=== PATIENT | female | born 1990 | race Two or more races ===

== ENCOUNTER 2023-09-07 17:49 | Emergency (ER) | payer OTHER ==
[~2023-09-07] VITALS: Ht 152.4 cm; Wt 67.5 kg
[2023-09-07 18:02] VITALS: TEMP 97.5; O2SAT 100
[2023-09-07 19:09] LABS: Urine Bacteria FEW /hpf (None Seen); Urine Blood Negative /uL (Negative); Urine Clarity Clear (Clear); Urine Color Colorless (Yellow); Urine Protein, UAD Negative (Negative); Urine Specific Gravity 1.014 (1.001-1.035); Urine Urobilinogen Normal (Negative); Urine WBC 1 /hpf (0 - 5); Urine pH 5.5 (5.0-8.0)
[2023-09-07 19:22] LABS: Albumin 4.6 g/dL (3.2-4.8); Alkaline Phosphatase 53 U/L (46-116); Anion Gap 5 (5-15); Aspartate Aminotransferase 10 U/L (13-40); BUN/Creatinine Ratio 11.7 (10.0-20.0); Bilirubin, Total 0.5 mg/dL (0.2-1.0); Blood Urea Nitrogen 11 mg/dL (9-23); Calcium 9.6 mg/dL (8.7-10.4); Carbon Dioxide 27 mmol/L (20-30); Chloride 104 mmol/L (98-107); Glucose 101 mg/dL (74-106); Potassium 3.9 mmol/L (3.5-5.1); Sodium 136 mmol/L (136-145); Total Protein 7.7 g/dL (5.7-8.2)
[2023-09-07 20:17] LABS: Alanine Aminotransferase < 9 U/L (7-40)
[2023-09-07 20:34] LABS: Basophils # (auto) 0 10 ^3/uL (0-0.2); Basophils % (auto) 0.6 % (0.0-2.0); Eosinophils # (auto) 0.1 10 ^3/uL (0-0.8); Eosinophils % (auto) 1.9 % (0.0-7.0); Hematocrit 37.8 % (36.0-46.0); Hemoglobin 12.8 g/dL (12.2-16.2); Lymphocytes # (auto) 2.3 10 ^3/uL (0.4-5.4); Lymphocytes % (auto) 31.2 % (10.0-50.0); Mean Corpuscular Hemoglobin 29.9 pg (28.0-32.0); Mean Corpuscular Hgb Conc. 33.8 g/dL (32.0-36.0); Mean Corpuscular Volume 88.7 fL (80.0-100.0); Monocytes # (auto) 0.6 10 ^3/uL (0-1.3); Monocytes % (auto) 8.3 % (0.0-12.0); Neutrophils # (auto) 4.2 10 ^3/uL (1.6-8.6); Nucleated Red Blood Cells % 0.1 %; Red Blood Cells 4.26 10^6/uL (4.0-5.20); Red Cell Distribution Width 14.6 % (11.8-14.3); White Blood Cell 7.3 10^3/uL (4.4-10.8)
[2023-09-07 21:33] VITALS: BP 134/82; PULSE 82; RESP 16
== END 2023-09-07 22:26 | disposition home or self-care (01) ==
LOC: ER 17:49
DX: O20.0 Threatened abortion (principal); R10.2 Pelvic and perineal pain; Z3A.01 Less than 8 weeks gestation of pregnancy
CPT/HCPCS: 36415; 76801; 76817; 80053; 81001; 84702; 85025

== ENCOUNTER 2023-10-15 08:15 | Emergency (ER) | payer MEDICAID, OTHER ==
[~2023-10-15] VITALS: Ht 152.4 cm; Wt 68.1 kg
[2023-10-15 08:40] LABS: Urine Bacteria FEW /hpf (None Seen); Urine Blood Negative /uL (Negative); Urine Clarity Clear (Clear); Urine Color Yellow (Yellow); Urine Hyaline Cast FEW /lpf (0 - 2); Urine Mucus FEW (None Seen); Urine Protein, UAD Negative (Negative); Urine Specific Gravity 1.015 (1.001-1.035); Urine Sperm PRESENT /hpf (None Seen); Urine WBC 5 /hpf (0 - 5); Urine pH 5.5 (5.0-8.0)
[2023-10-15] MEDS ORDERED: NITR-87 PO (10:25)
[2023-10-15 10:32] VITALS: BP 128/84; PULSE 85; RESP 17; TEMP 98.4; O2SAT 99
== END 2023-10-15 10:34 | disposition home or self-care (01) ==
LOC: ER 08:15
DX: O20.0 Threatened abortion (principal); O23.41 Unspecified infection of urinary tract in pregnancy, first trimester; N39.0 Urinary tract infection, site not specified; Z79.899 Other long term (current) drug therapy; Z3A.09 9 weeks gestation of pregnancy
CPT/HCPCS: 36415; 76801; 81001; 84702

== ENCOUNTER 2024-01-15 13:44 | Emergency (ER) | payer MEDICAID ==
[~2024-01-15] VITALS: Ht 152.4 cm; Wt 70.6 kg
[~2024-01-15 13:44] MED LIST: NITR-87 PO; OMEP-335 PO
[2024-01-15 14:00] VITALS: BP 113/79; PULSE 97; RESP 16; O2SAT 98
[2024-01-15 15:13] LABS: Blood Alcohol < 3.0 mg/dL (<10)
[2024-01-15 15:14] LABS: Creatine Kinase IFCC 53 U/L (34-145)
[2024-01-15] MEDS ORDERED: SODIUM CHLORIDE 0.9% 500 ML IV ONE (15:30)
[2024-01-15 15:41] LABS: Magnesium 1.7 mg/dL (1.6-2.6)
[2024-01-15 15:55] LABS: Urine Bacteria FEW /hpf (None Seen); Urine Blood Negative /uL (Negative); Urine Clarity Clear (Clear); Urine Color Yellow (Yellow); Urine Mucus FEW (None Seen); Urine Protein, UAD Negative (Negative); Urine Specific Gravity 1.017 (1.001-1.035); Urine Urobilinogen 4 mg/dL (Negative); Urine WBC 2 /hpf (0 - 5)
[2024-01-15 16:12] LABS: Amphetamine Screen, Urine Neg (NEGATIVE); Barbiturate Scree,Urine Neg (NEGATIVE); Benzodiazephine Screen, Urine Neg (NEGATIVE); Cocaine Screen, Urine Neg (NEGATIVE); Opiate Scree,Urine Neg (NEGATIVE)
[2024-01-15 16:13] LABS: Cannabinoid Screen, Urine Neg (NEGATIVE); Phencyclidine Screen, Urine Neg (NEGATIVE)
[2024-01-15] MEDS ORDERED: cefTRIAXone 1GM/50ML D5W 50 ML IV ONE (18:00)
[2024-01-15 18:44] LABS: Basophils # (auto) 0.1 10 ^3/uL (0-0.2); Basophils % (auto) 0.7 % (0.0-2.0); Eosinophils # (auto) 0.3 10 ^3/uL (0-0.8); Hemoglobin 11.2 g/dL (12.2-16.2); Lymphocytes % (auto) 17.3 % (10.0-50.0); Mean Corpuscular Hemoglobin 30.1 pg (28.0-32.0); Mean Corpuscular Volume 91.3 fL (80.0-100.0); Monocytes # (auto) 0.9 10 ^3/uL (0-1.3); Nucleated Red Blood Cells % 0.2 %; Red Blood Cells 3.72 10^6/uL (4.0-5.20); Red Cell Distribution Width 13.4 % (11.8-14.3); White Blood Cell 11.3 10^3/uL (4.4-10.8)
== END 2024-01-15 20:01 | disposition left against medical advice (07) ==
LOC: ER 13:44
DX: O26.892 Other specified pregnancy related conditions, second trimester (principal); R10.2 Pelvic and perineal pain; R53.1 Weakness; Z3A.22 22 weeks gestation of pregnancy; Z79.899 Other long term (current) drug therapy
CPT/HCPCS: 36415; 76815; 80307; 80320; 81001; 82550; 83735; 84484; 84702; 85025; 85045; 93970

== ENCOUNTER 2024-01-21 12:19 | Emergency (ER) | payer MEDICAID ==
[~2024-01-21] VITALS: Ht 152.4 cm; Wt 70.6 kg
[2024-01-21 13:14] VITALS: BP 118/82; PULSE 96; RESP 16; O2SAT 96
[2024-01-21 13:15] LABS: Basophils # (auto) 0 10 ^3/uL (0-0.2); Basophils % (auto) 0.3 % (0.0-2.0); Eosinophils # (auto) 0.4 10 ^3/uL (0-0.8); Eosinophils % (auto) 3.6 % (0.0-7.0); Hematocrit 30.8 % (36.0-46.0); Hemoglobin 10.4 g/dL (12.2-16.2); Lymphocytes # (auto) 1.6 10 ^3/uL (0.4-5.4); Lymphocytes % (auto) 16.3 % (10.0-50.0); Mean Corpuscular Hemoglobin 30.4 pg (28.0-32.0); Mean Corpuscular Hgb Conc. 33.8 g/dL (32.0-36.0); Mean Corpuscular Volume 89.8 fL (80.0-100.0); Monocytes # (auto) 0.6 10 ^3/uL (0-1.3); Monocytes % (auto) 6.1 % (0.0-12.0); Neutrophils # (auto) 7.3 10 ^3/uL (1.6-8.6); Neutrophils % (auto) 73.7 % (37.0-80.0); Nucleated Red Blood Cells % 0.1 %; Red Blood Cells 3.43 10^6/uL (4.0-5.20); Red Cell Distribution Width 13.5 % (11.8-14.3); White Blood Cell 9.9 10^3/uL (4.4-10.8)
[2024-01-21 13:45] LABS: Albumin 3.7 g/dL (3.2-4.8); Alkaline Phosphatase 45 U/L (46-116); Anion Gap 7 (5-15); Aspartate Aminotransferase 13 U/L (13-40); Bilirubin, Total 0.4 mg/dL (0.2-1.0); Carbon Dioxide 24 mmol/L (20-30); Chloride 106 mmol/L (98-107); Glucose 92 mg/dL (74-106); Potassium 3.6 mmol/L (3.5-5.1); Sodium 137 mmol/L (136-145); Total Protein 6.4 g/dL (5.7-8.2)
[2024-01-21 13:46] LABS: Alanine Aminotransferase < 9 U/L (7-40); BUN/Creatinine Ratio 8.2 (10.0-20.0); Blood Urea Nitrogen < 5 mg/dL (9-23)
== END 2024-01-21 14:31 | disposition left against medical advice (07) ==
LOC: ER 12:19
DX: O26.892 Other specified pregnancy related conditions, second trimester (principal); R10.9 Unspecified abdominal pain; R42 Dizziness and giddiness; R53.1 Weakness; Z79.899 Other long term (current) drug therapy; Z3A.00 Weeks of gestation of pregnancy not specified
CPT/HCPCS: 36415; 80053; 85025

== ENCOUNTER 2024-02-01 16:57 | Emergency (ER) | payer MEDICAID ==
[~2024-02-01] VITALS: Ht 152.4 cm; Wt 65.0 kg
[2024-02-01 19:08] LABS: Basophils # (auto) 0 10 ^3/uL (0-0.2); Basophils % (auto) 0.3 % (0.0-2.0); Eosinophils # (auto) 0.3 10 ^3/uL (0-0.8); Eosinophils % (auto) 1.9 % (0.0-7.0); Hematocrit 32.3 % (36.0-46.0); Hemoglobin 10.6 g/dL (12.2-16.2); Lymphocytes # (auto) 1.3 10 ^3/uL (0.4-5.4); Lymphocytes % (auto) 9.3 % (10.0-50.0); Mean Corpuscular Hemoglobin 29.6 pg (28.0-32.0); Mean Corpuscular Hgb Conc. 32.9 g/dL (32.0-36.0); Monocytes # (auto) 0.9 10 ^3/uL (0-1.3); Monocytes % (auto) 6.3 % (0.0-12.0); Neutrophils # (auto) 11.4 10 ^3/uL (1.6-8.6); Neutrophils % (auto) 82.2 % (37.0-80.0); Red Blood Cells 3.58 10^6/uL (4.0-5.20); Red Cell Distribution Width 14.6 % (11.8-14.3); White Blood Cell 13.9 10^3/uL (4.4-10.8)
[2024-02-01 19:15] LABS: Chloride 104 mmol/L (98-107); Potassium 3.5 mmol/L (3.5-5.1); Sodium 137 mmol/L (136-145)
[2024-02-01 19:16] LABS: Anion Gap 8 (5-15); Carbon Dioxide 25 mmol/L (20-30)
[2024-02-01 19:17] LABS: Calcium 9.5 mg/dL (8.5-10.1)
[2024-02-01 19:21] LABS: Glucose 117 mg/dL (74-106)
[2024-02-01 19:30] LABS: Urine Bacteria FEW /hpf (None Seen); Urine Blood Negative /uL (Negative); Urine Clarity Clear (Clear); Urine Color Yellow (Yellow); Urine Mucus FEW (None Seen); Urine Protein, UAD Negative (Negative); Urine Specific Gravity 1.015 (1.001-1.035); Urine Urobilinogen 3 mg/dL (Negative); Urine WBC 4 /hpf (0 - 5)
[2024-02-01 19:37] LABS: BUN/Creatinine Ratio 7.7 (10.0-20.0); Blood Urea Nitrogen < 5 mg/dL (9-23)
[2024-02-01 20:13] VITALS: BP 114/75; PULSE 101; RESP 18; TEMP 98.9; O2SAT 100
== END 2024-02-01 20:15 | disposition home or self-care (01) ==
LOC: EDBD 16:57 → ER 16:57
DX: O99.012 Anemia complicating pregnancy, second trimester (principal); O26.892 Other specified pregnancy related conditions, second trimester; R10.31 Right lower quadrant pain; Z3A.23 23 weeks gestation of pregnancy; Z79.899 Other long term (current) drug therapy
CPT/HCPCS: 36415; 80048; 81001; 85025

== ENCOUNTER 2024-03-11 18:45 | Observation (INO) | payer MEDICAID ==
[~2024-03-11] VITALS: Ht 152.4 cm; Wt 70.8 kg
[2024-03-11] MEDS: LACTATED RINGER'S 1,000 ML IV ONE (21:05)
== END 2024-03-11 22:29 | disposition home or self-care (01) ==
LOC: LDRP 18:45
PROVIDERS: ADMIT Obstetrics & Gynecology; ATTEND Obstetrics & Gynecology
DX: O99.283 Endocrine, nutritional and metabolic diseases complicating pregnancy, third trimester (principal); E86.0 Dehydration; O62.9 Abnormality of forces of labor, unspecified; O26.893 Other specified pregnancy related conditions, third trimester; N89.8 Other specified noninflammatory disorders of vagina; Z3A.30 30 weeks gestation of pregnancy
CPT/HCPCS: 59025; 81002; 94760; 96360; G0378

== ENCOUNTER 2024-04-07 18:20 | Observation (INO) | payer MEDICAID ==
[~2024-04-07] VITALS: Ht 152.4 cm; Wt 72.6 kg
[2024-04-07 20:27] LABS: Albumin 3.6 g/dL (3.2-4.8); Alkaline Phosphatase 77 U/L (46-116); Anion Gap 6 (5-15); Aspartate Aminotransferase 15 U/L (13-40); Calcium 9.2 mg/dL (8.5-10.1); Carbon Dioxide 25 mmol/L (20-30); Chloride 107 mmol/L (98-107); Glucose 73 mg/dL (74-106); Sodium 138 mmol/L (136-145)
[2024-04-07 20:28] LABS: Bilirubin, Total 0.8 mg/dL (0.2-1.0); Total Protein 6.1 g/dL (5.7-8.2)
[2024-04-07 20:31] LABS: INR 0.99 (0.9-1.15); Partial Thromboplastin Time 25.4 SEC (24.5-34.5); Prothrombin Time 10.5 sec (9.3-11.8)
[2024-04-07] MEDS: ACETAMINOPHEN 325 MG TAB PO ONE (20:35)
[2024-04-07 20:39] LABS: Alanine Aminotransferase < 9 U/L (7-40); BUN/Creatinine Ratio 8.9 (10.0-20.0); Blood Urea Nitrogen < 5 mg/dL (9-23)
[2024-04-07 20:48] LABS: Urine Amorphous Crystal FEW /hpf (None Seen); Urine Bacteria FEW /hpf (None Seen); Urine Blood Negative /uL (Negative); Urine Clarity Clear (Clear); Urine Color Light-Yellow (Yellow); Urine Mucus FEW (None Seen); Urine Protein, UAD Negative (Negative); Urine Specific Gravity 1.008 (1.001-1.035); Urine Urobilinogen 2 mg/dL (Negative); Urine WBC 3 /hpf (0 - 5); Urine pH 6.5 (5.0-9.0)
[2024-04-07 20:57] LABS: Uric Acid 4.5 mg/dL (3.1-7.8)
[2024-04-07 21:07] LABS: Protein, Urine < 6.0 mg/dL (0.0-11.9)
[2024-04-07 21:08] LABS: Amphetamine Screen, Urine Neg (NEGATIVE); Barbiturate Scree,Urine Neg (NEGATIVE); Cocaine Screen, Urine Neg (NEGATIVE); Opiate Scree,Urine Neg (NEGATIVE)
[2024-04-07 21:09] LABS: Cannabinoid Screen, Urine Neg (NEGATIVE); Creatinine, Urine 52.62 mg/dL (30.0-125.0); Phencyclidine Screen, Urine Neg (NEGATIVE); Urine Protein/Creatinine Ratio 0.11
[2024-04-07] MEDS ORDERED: PREN-96 PO (21:09)
[2024-04-07] MEDS ORDERED: ASPI-543 PO (21:10)
[2024-04-07 21:19] LABS: Basophils # (auto) 0 10 ^3/uL (0-0.2); Basophils % (auto) 0.4 % (0.0-2.0); Eosinophils # (auto) 0.2 10 ^3/uL (0-0.8); Eosinophils % (auto) 1.5 % (0.0-7.0); Hemoglobin 10.9 g/dL (12.2-16.2); Lymphocytes # (auto) 1.7 10 ^3/uL (0.4-5.4); Lymphocytes % (auto) 17.1 % (10.0-50.0); Mean Corpuscular Hemoglobin 29.7 pg (28.0-32.0); Mean Corpuscular Volume 90.1 fL (80.0-100.0); Monocytes # (auto) 0.8 10 ^3/uL (0-1.3); Monocytes % (auto) 7.9 % (0.0-12.0); Neutrophils # (auto) 7.2 10 ^3/uL (1.6-8.6); Neutrophils % (auto) 73.1 % (37.0-80.0); Nucleated Red Blood Cells % 0.1 %; Red Blood Cells 3.66 10^6/uL (4.0-5.20); White Blood Cell 9.8 10^3/uL (4.4-10.8)
[2024-04-07 21:47] LABS: Benzodiazephine Screen, Urine Neg (NEGATIVE)
== END 2024-04-07 22:02 | disposition home or self-care (01) ==
LOC: LDRP 18:20
PROVIDERS: ADMIT Obstetrics & Gynecology; ATTEND Obstetrics & Gynecology
DX: O99.013 Anemia complicating pregnancy, third trimester (principal); D57.3 Sickle-cell trait; Z79.899 Other long term (current) drug therapy; Z3A.34 34 weeks gestation of pregnancy
CPT/HCPCS: 36415; 59025; 76705; 76805; 76818; 80053; 80307; 81001; 81002; 82570; 84156; 84550; 85610; 85730; 94760; G0378

== ENCOUNTER 2024-05-14 17:15 | Emergency (ER) | payer MEDICAID, OTHER ==
[~2024-05-14] VITALS: Ht 152.4 cm; Wt 69.9 kg
[~2024-05-14 17:15] MED LIST changes: +ASPI-543 PO; +PREN-96 PO
[2024-05-14 19:49] LABS: Urine Blood 2+ /uL (Negative); Urine Clarity Clear (Clear); Urine Color Light-Yellow (Yellow); Urine Protein, UAD Negative (Negative); Urine Urobilinogen Normal (Negative)
[2024-05-14 19:57] LABS: Basophils # (auto) 0 10 ^3/uL (0-0.2); Eosinophils # (auto) 0.2 10 ^3/uL (0-0.8); Eosinophils % (auto) 1.7 % (0.0-7.0); Hematocrit 22.8 % (36.0-46.0); Hemoglobin 7.5 g/dL (12.2-16.2); Mean Corpuscular Hgb Conc. 32.8 g/dL (32.0-36.0)
[2024-05-14 19:59] LABS: Basophils % (auto) 0.4 % (0.0-2.0); Lymphocytes # (auto) 2.2 10 ^3/uL (0.4-5.4); Lymphocytes % (auto) 20.6 % (10.0-50.0); Mean Corpuscular Hemoglobin 28.4 pg (28.0-32.0); Mean Corpuscular Volume 86.6 fL (80.0-100.0); Monocytes # (auto) 0.6 10 ^3/uL (0-1.3); Neutrophils # (auto) 7.7 10 ^3/uL (1.6-8.6); Neutrophils % (auto) 71.3 % (37.0-80.0); Nucleated Red Blood Cells % 0.2 %; Red Blood Cells 2.64 10^6/uL (4.0-5.20); Red Cell Distribution Width 16.5 % (11.8-14.3); White Blood Cell 10.8 10^3/uL (4.4-10.8)
[2024-05-14 20:17] LABS: Alanine Aminotransferase 13 U/L (7-40); Albumin 3.4 g/dL (3.2-4.8); Alkaline Phosphatase 89 U/L (46-116); Anion Gap 4 (5-15); Aspartate Aminotransferase 27 U/L (13-40); BUN/Creatinine Ratio 8.1 (10.0-20.0); Blood Urea Nitrogen 6 mg/dL (9-23); Calcium 9.1 mg/dL (8.7-10.4); Carbon Dioxide 30 mmol/L (20-30); Chloride 107 mmol/L (98-107); Glucose 86 mg/dL (74-106); Potassium 3.6 mmol/L (3.5-5.1); Sodium 141 mmol/L (136-145)
[2024-05-14 20:18] LABS: Bilirubin, Total 0.5 mg/dL (0.2-1.0); Total Protein 5.7 g/dL (5.7-8.2)
[2024-05-14 22:15] VITALS: PULSE 85; RESP 14; O2SAT 99
[2024-05-14] MEDS: ONDANSETRON HCL 4 MG/2 ML VIAL IV ONE (23:46)
[2024-05-14] MEDS: MORPHINE SULFATE 4 MG/ML SYR/VIAL IV ONE (23:47)
[2024-05-15] VITALS (10 sets, daily range): BP systolic 103–136; BP diastolic 68–93; PULSE 72–105; RESP 15–22; TEMP 97.8–98.7; O2SAT 98
== END 2024-05-15 07:52 | disposition home or self-care (01) ==
LOC: ER 17:15
DX: O72.1 Other immediate postpartum hemorrhage (principal); D64.9 Anemia, unspecified; Z79.899 Other long term (current) drug therapy
CPT/HCPCS: 36415; 36430; 80053; 81003; 85025; 86850; 86870; 86900; 86901; 93970; 96374; 96375; 99285; J2270; J2405; P9016; 86922

== ENCOUNTER 2024-11-06 08:29 | Emergency (ER) | payer MEDICAID ==
[~2024-11-06] VITALS: Ht 152.4 cm; Wt 71.7 kg
[2024-11-06 09:03] VITALS: BP 121/103; PULSE 92; RESP 16; TEMP 98.7; O2SAT 99
[2024-11-06] MEDS: IBUPROFEN 800 MG TAB PO ONE (09:25)
[2024-11-06] MEDS: cefTRIAXone SOD 1,000 MG VL IM ONE (09:25)
--- NOTE | 2024-11-06 09:25 | ED.PDOC ---
History of Present Illness(SKN HPI Comments A 34 YEAR OLD FEMALE PRESENTS TO THE ED WITH COMPLAINT OF INSECT BITE RIGHT INNER UPPER THIGH. PATIENT STATES SHE WAS IN AN INSECT BITE ON HER RIGHT INNER UPPER THIGH FOR THE PAST 3 DAYS. PATIENT REPORTS THIS BITE HAS BECOME INCREASINGLY RED AND SWOLLEN. PATIENT DENIES FEVER, CHILLS, SHORTNESS OF BREATH, CHEST PAIN, ABDOMINAL PAIN, NAUSEA, VOMITING, HEADACHE, OR OTHER COMPLAINTS. NO OTHER SYMPTOMS OR MODIFYING FACTORS AT THIS TIME. PATIENT IS ALERT, ORIENTED X 4, AND HAS STEADY GAIT. Chief Complaint: Abscess Time Seen by MD: 08:45 Primary Care Provider: UNKNOWN History of Present Illness: Nurses Notes, Medications, Allergies Allergies: Coded Allergies: NO KNOWN ALLERGIES (Unverified , 09/07/23) Home Meds Active Scripts Omeprazole (Omeprazole) 20 Mg Tab, 20 MG PO DAILY, #30 TAB Prov:ASHLEY SHAIKH PAC 12/19/23 Nitrofurantoin Monohydrate Mac (Macrobid) 100 Mg Cap, 100 MG PO BID for 5 Days, #10 CAP Prov:ASHU SAXENA MD 10/15/23 Reported Medications Aspirin (Aspir-Low) 81 Mg Tab, 81 MG PO DAILY for 30 Days, MG 04/07/24 Vit W/ Ferrous Fumara ( One Daily) Daily Tab, 1 TAB PO DAILY, #90 TAB 3 Refills 04/07/24 Information Source: Patient Mode of Arrival: Ambulatory Severity: Moderate Timing: Days Duration: Since onset, Days Prehospital treatment: None Location: Leg (RIGHT INNER UPPER THIGH) Mechanism: Insect Occurence: Indoors Object: None Condition of Object: None Retained Foreign Body: No Wound Type: Other (INSECT BITE) Immunization Status of Animal: NA Tetanus: Unknown History of: None Associated Signs and Symptoms: Redness, Swelling, Pain Past Medical History PAST MEDICAL HISTORY: Denies Surgical History: Denies all surgeries 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 , 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 Family History Family History: Reviewed,noncontributory to illness Social History Smoker: Non-Smoker Alcohol: Denies ETOH Use Drugs: Denies Drug Use Lives In: Home Constitutional: denies: chills, diaphoresis, fatigue, fever, malaise, sweats, weakness, others EENTM: denies: blurred vision, double vision, ear bleeding, ear discharge, ear drainage, ear pain, ear ringing, eye pain, eye redness, hearing loss, mouth pain, mouth swelling, nasal discharge, nose bleeding, nose congestion, nose pain, photophobia, tearing, throat pain, throat swelling, voice changes, others Respiratory: denies: cough, hemoptysis, orthopnea, SOB at rest, shortness of breath, SOB with excertion, stridor, wheezing, others Cardiovascular: denies: chest pain, dizzy spells, diaphoresis, Dyspnea on exertion, edema, irregular heart beat, left arm pain, lightheadedness, palpitations, PND, syncope, others Gastrointestinal: denies: abdomen distended, abdominal pain, blood streaked bowels, constipated, diarrhea, dysphagia, difficulty swallowing, hematemesis, melena, nausea, poor appetite, poor fluid intake, rectal bleeding, rectal pain, vomiting, others Genitourinary: denies: abnormal vagina bleeding, burning, dyspareunia, dysuria, flank pain, frequency, hematuria, incontinence, pain, , vagina discharge, urgency, others Neurological: denies: dizziness, fainting, headache, left sided numbness, left sided weakness, numbness, paresthesia, pre-existing deficit, right sided numbness, right sided weakness, seizure, speech problems, tingling, tremors, weakness, others Musculoskeletal: denies: back pain, gout, joint pain, joint swelling, muscle pain, muscle stiffness, neck pain, others Integumetry: reports: lumps (INSECT BITE OF RIGHT INNER UPPER THIGH); denies: bruises, change in color, change in hair/nails, dryness, laceration, lesions, rash, wounds, others Allergic/Immunocompromised: denies: Difficulty Healing, Frequent Infections, Hives, Itching, others Hematologic/Lymphatic: denies: anemia, blood clots, easy bleeding, easy bru ising, swollen glands, others Endocrine: denies: excessive hunger, excessive sweating, excessive thirst, e xcessive urination, flushing, intolerance to cold, intolerance to heat, unexplained weight gain, unexplained weight loss, others Psychiatric: denies: anxiety, bipolar disorder, depression, hopeless, panic disorder, schizophrenia, sleepless, suicidal, others All Other Systems: Reviewed and Negative Physical Exam General Appearance: No Apparent Distress, Normal HEENT: Normal ENT Inspection, PERRL/EOMI, Pharynx Normal, TMs Normal Neck: Full Range of Motion, Non-Tender, Normal, Normal Inspection Respiratory: Chest Non-Tender, Lungs Clear, No Accessory Muscle Use, No Respiratory Distress, Normal Breath Sounds Cardiovascular: No Edema, No JVD, No Murmur, No Gallop, Normal Peripheral Pulses, Regular Rate/Rhythm Breast Exam: Deferred Gastrointestinal: No Organomegaly, Non Tender, No Pulsatile Mass, Normal Bowel Sounds, Soft Genitalia: Deferred Pelvic: Deferred Rectal: Deferred Extremities: No calf tenderness, Normal capillary refill, Normal range of motion, No pedal edema, Tender (WITH A RED BUMP ON RIGHT INNER UPPER THIGH, NO BONY TENDERNESS AND SWELLING AND DEFORMITY. 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 ) Peripheral Pulses: 2+ carotid (R), 2+ carotid (L), 2+ dorsalis pedis (R), 2+ dorsalis pedis (L) Lymphatic: No Adenopathy Was a procedure done? Was a procedure done?: No Differential Diagnosis (INTG) Differential Diagnosis: Cellulitis, Insect Envenomation, Puncture Wound, Other (ABSCESS, FURUNCLE, SKIN PIMPLE) Differential Diagnosis: N/A Differential Diagnosis: N/A Abscess: N/A Differential Diagnosis: N/A X-Ray, Labs, Meds, VS Vital Signs Date Time Temp Pulse Resp B/P (MAP) Pulse Ox O2 Delivery O2 Flow Rate FiO2 11/06/24 09:03 98.7 92 16 121/103 (109) 99 98.7 11/06/24 09:03 92 16 99 Room Air 11/06/24 08:48 98.7 92 16 121/103 (109) 99 Current Medications Medications (Trade) Dose Ordered Sig/Galina Route Start Time Stop Time Status Last Admin Ceftriaxone Sodium (Rocephin) 1,000 mg ONCE ONCE IM 11/06/24 09:30 11/06/24 09:31 DC 11/06/24 09:25 Ibuprofen (Motrin Tablet) 800 mg ONCE ONCE PO 11/06/24 09:30 11/06/24 09:31 DC 11/06/24 09:25 X-Ray, Labs, Meds, VS Comment EXTERNAL MEDICAL RECORDS REVIEWED: [NONE] INDEPENDENT HISTORIANS: [NONE] SOCIAL DETERMINANTS OF HEALTH: [NONE] LABS ORDERED: NONE REVIEWED AND INTERPRETED RESULTS: NONE IMAGING ORDERED: NONE TREATMENTS ORDERED: ROCEPHIN 1 G IM, MOTRIN 800 MG P.O. PROCEDURES PERFORMED: NONE CRITICAL CARE TIME: NONE I HAVE DISCUSSED THE PATIENT WITH THE ATTENDING PHYSICIAN DR. ROBERTS AND HE AGREES WITH THE PATIENT'S PLAN OF CARE AND DISPOSITION. BASED ON HISTORY OF PRESENT ILLNESS, AND PHYSICAL EXAM, PATIENT WILL BE DISCHARGED HOME. SHARED DECISION MAKING: PATIENT INSTRUCTED TO FOLLOW UP WITH PRIMARY CARE PROVIDER IN 1-2 DAYS FOR RE-EVALUATION OF SYMPTOMS. PATIENT VERBALIZES UNDERSTANDING TO RETURN TO ED FOR NEW OR WORSENING SYMPTOMS OR IF FOLLOW UP WITH PCP CANNOT BE OBTAINED. PATIENT FEELS COMFORTABLE GOING HOME AT THIS TIME. ALL QUESTIONS ADDRESSED AT TIME OF DISCHARGE. Time of 1ST Reevaluation: 09:40 Reevaluation 1ST: Improved Patient Education/Counseling: Diagnosis, Treatment, Need For Follow Up Family Education/Counseling: Diagnosis, Treatment, Need For Follow Up Medical Screening: No EMC Exist At This Time Departure 1 Departure Time of Disposition: 09:50 Impression: Primary Impression: Insect bite (nonvenomous), right thigh, initial encounter Disposition: HOME / SELF CARE / HOMELESS Condition: Stable Additional Instructions: FOLLOW-UP WITH PCP IN 1 TO 2 DAYS. TAKE MEDICATIONS PRESCRIBED. RETURN TO ED FOR ANY NEW OR WORSENING SYMPTOMS. e-Prescriptions Cephalexin Monohydrate (Cephalexin) 500 Mg Cap 1 CAP PO QID, #40 CAP Prov: TONNY REYNOLDS 11/06/24 Ibuprofen (Ibuprofen) 800 Mg Tab 1 TAB PO TID, #30 TAB Prov: TONNY REYNOLDS 11/06/24 Discharged With: Self Critical Care Note Critical Care Time?: No Stability Stability form required: No I personally scribed for TONNY REYNOLDS ([email or web address]) on 11/06/24 at 09:25. Electronically submitted by Marcell Junior ([email or web address]). TONNY REYNOLDS Nov 06, 2024 09:25
[2024-11-06] MEDS ORDERED: CEPH500C PO (09:42)
[2024-11-06] MEDS ORDERED: IBUP-1456 PO (09:42)
== END 2024-11-06 09:45 | disposition home or self-care (01) ==
LOC: ER 08:29
DX: S70.361A Insect bite (nonvenomous), right thigh, initial encounter (principal); Z79.82 Long term (current) use of aspirin; Z79.899 Other long term (current) drug therapy; Z87.59 Personal history of other complications of pregnancy, childbirth and the puerperium; W57.XXXA Bitten or stung by nonvenomous insect and other nonvenomous arthropods, initial encounter; Y93.89 Activity, other specified; Y92.89 Other specified places as the place of occurrence of the external cause; Y99.8 Other external cause status
CPT/HCPCS: 96372; 99283; J0696

== ENCOUNTER 2025-09-23 23:13 | Emergency (ER) | payer MEDICAID ==
[~2025-09-23] VITALS: Ht 152.4 cm; Wt 72.2 kg
[~2025-09-23 23:13] MED LIST changes: +CEPH500C PO; +IBUP-1456 PO
--- NOTE | 2025-09-23 23:47 | ED.PDOC ---
History of Present Illness HPI Comments 34-year-old female who came to ER for bilateral lower extremity pain. Patient states she underwent biopsy of her left ovary 2 days ago at [facility]. Patient tolerated procedure well. About an hour prior to arrival, she has started experiencing bilateral calf pain and tenderness. Denies any re cent trauma to the legs. Denies any chest pain or shortness of breath or fever. REVIEW OF SYSTEMS: General: No fever, no chills, or fatigue HEENT: No sore throat, no earache, no congestion, no neck pain. Cardiac: No chest pain. No palpitations. Lungs: No shortness of breath, no cough. GI: No nausea, no vomiting, no diarrhea, no constipation, no abdominal pain : No dysuria, frequency, or urgency. No hematuria. Musculoskeletal: No joint pain , no joint swelling, no extremity edema. (+) bilateral calf pain Skin: No rash, no itching. Neuro: No headache, no dizziness, no weakness EXAM: General: Awake, alert and oriented. No acute distress. Skin: Skin in warm, dry and intact. Appropriate color for ethnicity. HEENT: The head is normocephalic and atraumatic. Conjunctivae are clear without exudates or hemorrhage. Sclera is non-icteric. EOM are intact. No signs of nystagmus. Eyelids are normal in appearance without swelling or lesions. Oral mucosa is pink and moist Neck: The neck is supple with normal range of motion. No JVD. Cardiac: Heart rate and rhythm are normal. No murmurs, gallops, or rubs are auscultated. Respiratory: No signs of respiratory distress. Lung sounds are clear in all lobes bilaterally without rales, rhonchi, or wheezes. Abdominal: Abdomen is soft, non-tender without distention. Bowel sounds are present and normoactive in all four quadrants. Extremities: Upper and lower extremities are atraumatic in appearance without deformity or edema. Tenderness to palpation of bilateral posterior calves. Neurological: The patient is awake, alert and oriented to person, place, and time with normal speech. Speech is clear. There is no facial asymmetry. Limping gait. Psychiatric: Appropriate mood and affect. Good judgement and insight Chief Complaint: Lower Extremity Time Seen by MD: 23:47 Primary Care Provider: UNKNOWN Reviewed Notes: Nurses Notes Allergies: Coded Allergies: NO KNOWN ALLERGIES (Unverified , 09/07/23) Home Meds Active Scripts Ibuprofen (Ibuprofen) 800 Mg Tab, 1 TAB PO TID PRN for 5 Days, #15 TAB Prov:FELI BURCH MD 09/24/25 Cephalexin Monohydrate (Cephalexin) 500 Mg Cap, 1 CAP PO QID, #40 CAP Prov:TONNY REYNOLDS PA 11/06/24 Omeprazole (Omeprazole) 20 Mg Tab, 20 MG PO DAILY, #30 TAB Prov:ASHLEY SHAIKH PAC 12/19/23 Nitrofurantoin Monohydrate Mac (Macrobid) 100 Mg Cap, 100 MG PO BID for 5 Days, #10 CAP Prov:ASHU SAXENA MD 10/15/23 Reported Medications Aspirin (Aspir-Low) 81 Mg Tab, 81 MG PO DAILY for 30 Days, MG 04/07/24 Vit W/ Ferrous Fumara ( One Daily) Daily Tab, 1 TAB PO DAILY, #90 TAB 3 Refills 04/07/24 Information Source: Patient Mode of Arrival: Ambulatory Past Medical History PAST MEDICAL HISTORY: Denies Past Medical History (Other): Chronic back pain Surgical History: Denies all surgeries 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 Was a procedure done?: No Differential Dx Considerations may include: Anemia, electrolyte imbalance, deep venous thrombosis, musculoskeletal pain X-Ray, Labs, Meds, VS Vital Signs Date Time Temp Pulse Resp B/P (MAP) Pulse Ox O2 Delivery O2 Flow Rate FiO2 09/24/25 02:13 98.5 09/24/25 02:01 98.4 87 20 131/88 (102) 97 98.4 09/24/25 00:23 97.9 09/23/25 23:18 97.6 76 18 149/116 98 97.6 Current Medications Medications (Trade) Dose Ordered Sig/Galina Route Start Time Stop Time Status Last Admin Ketorolac Tromethamine (Toradol Injection) 30 mg ONCE ONCE IM 09/24/25 00:00 09/24/25 00:01 DC 09/24/25 00:23 Tramadol HCl (Ultram) 50 mg ONCE ONCE PO 09/24/25 00:00 09/24/25 00:01 DC 09/24/25 00:23 Acetaminophen (Tylenol Tablet) 650 mg ONCE ONCE PO 09/24/25 00:00 09/24/25 00:01 DC 09/24/25 00:23 Time of 1ST Reevaluation: 23:43 Reevaluation 1ST: Unchanged Patient Education/Counseling: Need For Follow Up Family Education/Counseling: No Family Present SEPSIS Sepsis Screen Date sepsis recognized/suspect: Sep 23, 2025 Time Sepsis recognized/suspect: 2319 Recent Procedure: No On Antibiotic Therapy: No Respiratory Rate >20: No Heart Rate >90: No Temp<36 C (96.8 F) or >38.3 C: No SBP <90 or MAP <65 mmHG: No New Acute Mental Status Change: No Is the patient on CPAP, BIPAP,: No Physician Orders Bilat Lower Dvt (09/24/25 00:00) Vital Signs Date Time Temp Pulse Resp B/P (MAP) Pulse Ox O2 Delivery O2 Flow Rate FiO2 09/24/25 02:13 98.5 09/24/25 02:01 98.4 87 20 131/88 (102) 97 98.4 09/24/25 00:23 97.9 09/23/25 23:18 97.6 76 18 149/116 98 97.6 Medications Medications Dose Ordered Sig/Galina Route Start Time Stop Time Status Last Admin Dose Admin Acetaminophen 650 mg ONCE ONCE PO 09/24/25 00:00 09/24/25 00:01 DC 09/24/25 00:23 Ketorolac Tromethamine 30 mg ONCE ONCE IM 09/24/25 00:00 09/24/25 00:01 DC 09/24/25 00:23 Tramadol HCl 50 mg ONCE ONCE PO 09/24/25 00:00 09/24/25 00:01 DC 09/24/25 00:23 Departure 1 Departure Time of Disposition: 02:21 Impression: Primary Impression: Leg pain, bilateral Disposition: 01 HOME / SELF CARE / HOMELESS Condition: Stable Additional Instructions: ED DISCHARGE INSTRUCTIONS Instructions: Please read all instructions provided in this packet carefully. Although you have been discharged from the Emergency Department, this does not mean that you have a "clean bill of health". No definitive diagnosis for your symptoms has been made today. It is possible that you are in the process of developing a serious illness. This is why you must return to the ED without fail if any new or worsening symptoms (especially if your symptoms include chest pain, trouble breathing, abdominal pain, fever, headache, confusion, trouble seeing, or trouble walking) It is also very important that you see a primary care provider (PCP) within the next 3-5 days to follow up. If you are unable to get an appointment, return to the ED for re-evaluation. e-Prescriptions Ibuprofen (Ibuprofen) 800 Mg Tab 1 TAB PO TID PRN for 5 Days, #15 TAB Prov: FELI BURCH MD 09/24/25 Comments 34-year-old female with bilateral calf pain. Ultrasound negative for DVT. Patient eloped from the emergency department prior to receiving discharge paperwork. Critical Care Note Critical Care Time?: No Stability Stability form required: No Heart Score Heart Score: Heart Score Response (Comments) Value History N/A 0 EKG N/A 0 Age N/A 0 Risk Factors N/A 0 Troponin N/A 0 Total 0 I personally scribed for FELI BURCH MD ([email or web address]) on 09/23/25 at 23:47. Electronically submitted by Juan Camarena ([email or web address]). FELI BURCH MD Sep 23, 2025 23:47
[2025-09-24] MEDS: KETOROLAC TROMETH 30 MG/ML 1ML VIAL IM ONE (00:23)
[2025-09-24] MEDS: ACETAMINOPHEN 325 MG TAB PO ONE (00:23)
--- NOTE | 2025-09-24 01:57 | DVH ---
Bilateral lower extremity venous duplex CLINICAL HISTORY: Bilateral lower calf pain status post surgery COMPARISON: US BILAT LOWER DVT on DOS: 05/14/24, US BILAT LOWER DVT on DOS: 01/15/24 TECHNIQUE: Duplex Doppler evaluation of the deep venous systems of both lower extremities from the common femoral veins to the popliteal veins including color Doppler and spectral/pulsed waveform analysis was performed. FINDINGS: RIGHT SIDE: The common femoral vein demonstrates appropriate compressibility and waveform variability. There is compressibility/patency of the great saphenous vein at the proximal thigh. The femoral vein demonstrates appropriate compressibility and waveform variability. The deep femoral vein demonstrates appropriate compressibility and waveform variability. The popliteal vein demonstrates appropriate compressibility and waveform variability. There is normal compressibility at the tibioperoneal trunk. LEFT SIDE: The common femoral vein demonstrates appropriate compressibility and waveform variability. There is compressibility/patency of the great saphenous vein at the proximal thigh. The femoral vein demonstrates appropriate compressibility and waveform variability. The deep femoral vein demonstrates appropriate compressibility and waveform variability. The popliteal vein demonstrates appropriate compressibility and waveform variability. There is normal compressibility at the tibioperoneal trunk. IMPRESSION: 1. No right or left femoropopliteal venous thrombosis.
[2025-09-24 02:01] VITALS: BP 131/88; PULSE 87; RESP 20; O2SAT 97
[2025-09-24 02:13] VITALS: TEMP 98.5
[2025-09-24] MEDS ORDERED: IBUP-1456 PO (02:22)
== END 2025-09-24 02:49 | disposition left against medical advice (07) ==
LOC: ER 23:13
DX: M79.605 Pain in left leg (principal); M79.604 Pain in right leg; Z90.721 Acquired absence of ovaries, unilateral; Z79.899 Other long term (current) drug therapy
CPT/HCPCS: 93970; 96372; 99285; J1885